=== PATIENT | male | born 1990 | race Caucasian/White ===

== ENCOUNTER 2019-01-28 10:36 | Emergency (ER) | payer OTHER ==
[~2019-01-28] VITALS: Ht 175.3 cm; Wt 121.1 kg
[2019-01-28 10:37] VITALS: Ht 175.3 cm; Wt 121.1 kg
[2019-01-28 11:41] VITALS: BP 123/83
== END 2019-01-28 11:41 | disposition home or self-care (01) ==
LOC: ED 10:36
DX: M75.31 Calcific tendinitis of right shoulder (principal); J45.909 Unspecified asthma, uncomplicated; M10.9 Gout, unspecified
CPT/HCPCS: J1885